=== PATIENT | male | born 1985 ===

== ENCOUNTER 2017-12-02 08:30 | Emergency (ER) | payer OTHER ==
[2017-12-02 08:34] VITALS: BMI 25.7
[2017-12-02 09:57] LABS: BASO % 0.5 % (0.0-2.0); EOS % 0.6 % (0.0-4.0); HEMOGLOBIN 15.1 g/dL (12.0-18.0); LYMPH # 1.7 K/uL (1.0-4.3); LYMPH % 21.6 % (20.0-40.0); MEAN CELL VOLUME 93.6 fl (80.0-94.0); MEAN CORPUSCULAR HEMOGLOBIN 32.8 pg (27.0-31.0); MEAN CORPUSCULAR HGB CONC 35.1 g/dL (33.0-37.0); MONO % 12.3 % (0.0-10.0); RBC 4.6 Mil/uL (4.40-5.90); RED CELL DISTRIBUTION WIDTH 13.2 % (11.5-14.5); WHITE BLOOD COUNT 7.8 K/uL (4.8-10.8)
--- NOTE | 2017-12-02 10:19 | ED PDOC ---
HPI: General Adult Time Seen by Provider: 12/02/17 09:17 Chief Complaint (Nursing): Anxiety Chief Complaint (Provider): Depression and Blood Work History Per: Patient History/Exam Limitations: no limitations Onset/Duration Of Symptoms: Hrs Current Symptoms Are (Timing): Still Present Additional Complaint(s): 31 year old male with PMHx of schizophrenia presents to the ER for an evaluation of for drug testing and blood work. Patient states his family members are concerned that he is no taking his medication for schizophrenia. Patient states he is compliment Divalproex Sodium and Thyroid medications. 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 Patient denies HI/SI, blurry vision, dizziness or headache. PMD: No Family Provider Past Medical History Reviewed: Historical Data, Nursing Documentation, Vital Signs Vital Signs: Last Vital Signs Temp 98.6 F 12/02/17 12:00 Pulse 65 12/02/17 12:00 Resp 18 12/02/17 12:00 BP 109/59 L 12/02/17 12:00 Pulse Ox 98 12/02/17 12:00 - Medical History PMH: Hypothyroidism, Schizophrenia - Family History Family History: States: Unknown Family Hx - Social History Current smoker - smoking cessation education provided: No Alcohol: None Drugs: Denies - Allergies Allergies/Adverse Reactions: Allergies Allergy/AdvReac Type Severity Reaction Status Date / Time No Known Allergies Allergy Verified 12/02/17 08:34 Review of Systems ROS Statement: Except As Marked, All Systems Reviewed And Found Negative Eyes: Negative for: Vision Change Neurological: Negative for: Headache, Dizziness Psych: Positive for: Depression. Negative for: Suicidal ideation (homicidal ideation) Physical Exam - Reviewed Nursing Documentation Reviewed: Yes Vital Signs Reviewed: Yes - Physical Exam Appears: Positive for: Non-toxic, No Acute Distress Head Exam: Positive for: ATRAUMATIC, NORMAL INSPECTION, NORMOCEPHALIC Skin: Positive for: Normal Color, Warm, Dry Eye Exam: Positive for: EOMI, Normal appearance, PERRL ENT: Positive for: Normal ENT Inspection Neck: Positive for: Normal, Painless ROM, Supple. Negative for: Decreased ROM Cardiovascular/Chest: Positive for: Regular Rate, Rhythm. Negative for: Murmur Respiratory: Positive for: Normal Breath Sounds. Negative for: Decreased Breath Sounds, Wheezing, Respiratory Distress Gastrointestinal/Abdominal: Positive for: Normal Exam, Soft. Negative for: Tenderness, Guarding, Rebound Back: Positive for: Normal Inspection Extremity: Positive for: Normal ROM. Negative for: Tenderness, Pedal Edema, Deformity Neurologic/Psych: Positive for: Alert, Oriented (X3). Negative for: Motor/ Sensory Deficits - Laboratory Results Result Diagrams: 12/02/17 09:45 12/02/17 09:45 - ECG O2 Sat by Pulse Oximetry: 99 (RA) Pulse Ox Interpretation: Normal - Critical Care Total Time (In Min): 30 (agitated patient requiring restraints and monitoring after continued escalation despite attempts to defuse) Medical Decision Making Medical Decision Making: Time: 944 Initial Plan: --Alcohol Serum --CMP --Drug Scree, Urine --TSH --Valproic Acid --Crisis Evaluation --CBC w/ Differential --Reevaluation Time: 1 --1:1 Observation Scribe Attestation: Documented by Bakari Negrete, acting as a scribe for Magdalena Pope MD Provider Scribe Attestation: All medical record entries made by the Scribe were at my direction and personally dictated by me. I have reviewed the chart and agree that the record accurately reflects my personal performance of the history, physical exam, medical decision making, and the department course for this patient. I have also personally directed, reviewed, and agree with the discharge instructions and disposition. 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 For [facility] screening. 2.40pm - patient still pending urine and EKg for medical clearance prior to [facility] screening. He is awake and still uncooperative. Will sedate for EKG and possibly urine. Endorse to Dr. Michelle Disposition - Clinical Impression Clinical Impression: Agitation - Patient ED Disposition Is Patient to be Admitted: Transfer of Care - Disposition Disposition: Transfer of Care Disposition Time: 14:45 Condition: FAIR Forms: [employer] ([place]) Patient Signed Over To: Patricia Michelle Present On Arrival: None
[2017-12-02 10:20] LABS: ALB/GLOB RATIO 1.7 (1.0-2.1); ALBUMIN 4.3 g/dL (3.5-5.0); ALT/SGPT 26 U/L (21-72); AST/SGOT 22 U/L (17-59); BLOOD UREA NITROGEN 20 mg/dl (9-20); CALCIUM 9.8 mg/dL (8.4-10.2); GFR NON-AFRICAN AMERICAN > 60
[2017-12-02 10:37] LABS: BARBITURATES, UR NEGATIVE (NEGATIVE); BENZODIAZEPINES, UR NEGATIVE (NEGATIVE); OPIATES, UR NEGATIVE (NEGATIVE); PHENCYCLIDINE, UR NEGATIVE (NEGATIVE)
--- NOTE | 2017-12-02 15:07 | ED PDOC ---
- Laboratory Results Result Diagrams: 12/02/17 09:45 12/02/17 09:45 - ECG ECG: Positive for: Interpreted By Me ECG Rhythm: Positive for: Normal QRS, Normal ST Segment, Sinus Rhythm O2 Sat by Pulse Oximetry: 99 (RA) - Radiology X-Ray: Interpreted by Al X-Ray Interpretation: No Acute Disease - Progress ED Course And Treament: 3p Rec'd endorsement from Dr Pope. Pt agitated and psychotic and required physical restraints for safety and medication for relief of agitation. Pending UA and EKG for screening by [facility]. 5p UA demonstrates calcium oxalate and bacteria but no leukocytes. EKG also wnl. Medically stable for psychiatric admission. 8p Per Gia CW: evaluated by [facility] in ER. Accepted for transfer pending CXR. 815p CXR no acute findings. Disposition Counseled Patient/Family Regarding: Studies Performed, Diagnosis - Clinical Impression Clinical Impression: Schizophrenia - POA Present On Arrival: None - Disposition Disposition: Other Institution Disposition Time: 22:43 Condition: STABLE Forms: [employer] ([place])
[2017-12-02 17:04] LABS: SQUAMOUS EPITHIAL < 1 /hpf (0-5); URINE BACTERIA OCC (<OCC); URINE BILIRUBIN NEGATIVE (NEGATIVE); URINE BLOOD NEGATIVE (NEGATIVE); URINE CALCIUM OXALATE CRYSTALS OCC /hpf (<OCC); URINE CLARITY CLOUDY (Clear); URINE COLOR YELLOW (YELLOW); URINE GLUCOSE (UA) NEG (Normal); URINE LEUKOCYTE ESTERASE NEG Leu/uL (Negative); URINE PROTEIN NEGATIVE (NEGATIVE); URINE UROBILINOGEN 0.2-1.0 mg/dL (0.2-1.0)
[2017-12-03 01:20] VITALS: RESP 16
[2017-12-03] MEDS ORDERED: Sterile Water 10 ML IV ONE (03:20)
[2017-12-03 04:49] VITALS: BP 106/65; PULSE 63; TEMP 98
--- NOTE | 2017-12-03 06:38 | CARD ---
APPROVED REPORT Date of service: 12/02/2017 EKG Measurement Heart [id number] <Conclusion> Normal sinus rhythm with sinus arrhythmia Normal ECG
--- NOTE | 2017-12-03 08:37 | RAD ---
Date of service: 12/02/2017 HISTORY: for transfer COMPARISON: No prior. FINDINGS: LUNGS: The lungs are well inflated and clear. PLEURA: No significant pleural effusion identified, no pneumothorax apparent. CARDIOVASCULAR: Normal. OSSEOUS STRUCTURES: No significant abnormalities. VISUALIZED UPPER ABDOMEN: Normal. OTHER FINDINGS: None. IMPRESSION: No active pulmonary disease.
[2017-12-03 23:26] VITALS: O2SAT 99
== END 2017-12-03 04:40 | disposition short-term general hospital (02) ==
LOC: H.ER 08:30
DX: F20.9 Schizophrenia, unspecified (principal); F41.9 Anxiety disorder, unspecified; F32.9 Major depressive disorder, single episode, unspecified; E03.9 Hypothyroidism, unspecified
CPT/HCPCS: 71045; 80053; 80164; 80320; 80324; 80345; 80346; 80349; 80353; 80358; 80361; 81003; 83992; 84443; 85025; 93005; 96372; 99285; J1630; J2060; J3486